=== PATIENT | female | born 1995 | race Two or more races ===

== ENCOUNTER 2022-05-25 01:10 | Emergency (ER) | payer SELFPAY ==
[~2022-05-25] VITALS: Ht 157.5 cm; Wt 77.1 kg
[2022-05-25 01:50] VITALS: BP 110/65
--- NOTE | 2022-05-25 01:50 | NUR ---
BIBA 62 FROM A BAR FOR ETOH. ALERT AND RESPONSIVE ON TRIAGE. PATIENT IS AAOX4. SHE CANNOT GIVE URINE AT THE MOMENT. PLACED COMFORTABLY IN BED. VITALS CHECKED.
--- NOTE | 2022-05-25 02:18 | NUR ---
ACCUCHECK DONE WITH RESULT OF 111mg/dl
--- NOTE | 2022-05-25 06:04 | NUR ---
patient is A, Ox4. ambulatory with steady gaits. PO tolerated well. no N/V. denied Si/HI . reoported feeling well and willing to leave. MD made aware. patient is medically stable for D.C per MD. Patient discharged to home in stable condition. Written and verbal after care instructions given. Patient verbalizes understanding of instruction.
== END 2022-05-25 06:05 | disposition home or self-care (01) ==
LOC: EDBD 01:35 → ER 01:35
DX: F10.129 Alcohol abuse with intoxication, unspecified (principal); Y90.9 Presence of alcohol in blood, level not specified
CPT/HCPCS: 82962-TC